=== PATIENT | male | born 1965 | race Caucasian/White ===

== ENCOUNTER 2018-06-13 02:55 | Emergency (ER) | payer BC, OTHER ==
[2018-06-13] MEDS: HYDROCODONE/APAP (5/325) TAB PO (05:20)
== END 2018-06-13 06:24 | disposition home or self-care (01) ==
LOC: FTE 02:55
DX: L03.115 Cellulitis of right lower limb (principal); E11.9 Type 2 diabetes mellitus without complications
CPT/HCPCS: 99283